=== PATIENT | female | born 1980 | race Caucasian/White ===

== ENCOUNTER 2016-09-04 13:26 | Emergency (ER) | payer OTHER ==
[~2016-09-04] VITALS: Ht 154.9 cm; Wt 76.4 kg
[2016-09-04] MEDS ORDERED: ZOLOFT100 MG PO (16:34)
[2016-09-04] MEDS ORDERED: FIORICET,ESG1 TABLET PO (17:19)
[2016-09-04 18:30] VITALS: BP 130/80
== END 2016-09-04 18:31 | disposition home or self-care (01) ==
LOC: EME 13:26
DX: R51 Headache (principal); R11.0 Nausea; R07.9 Chest pain, unspecified
CPT/HCPCS: 93005; 99281; 99284; J1885; J7030